=== PATIENT | male | born 1975 | race Caucasian/White ===

== ENCOUNTER 2016-12-18 12:21 | Emergency (ER) | payer OTHER ==
[~2016-12-18] VITALS: Ht 187.9 cm; Wt 74.4 kg
[2016-12-18 12:21] VITALS: BP 134/76
[~2016-12-18 12:21] MED LIST: PENICILLIN VK500 MG PO
[2016-12-18] MEDS ORDERED: CYCLOBENZAPRINE10 MG PO (13:51)
[2016-12-18] MEDS ORDERED: MEDROL DOSEPAK4 MG PO (13:51)
[2016-12-18] MEDS ORDERED: NAPROSYN500 MG PO (13:51)
== END 2016-12-18 14:00 | disposition home or self-care (01) ==
LOC: ED 12:21
DX: M54.30 Sciatica, unspecified side (principal); F17.200 Nicotine dependence, unspecified, uncomplicated

== ENCOUNTER 2020-03-01 19:16 | Emergency (ER) | payer OTHER ==
[~2020-03-01 19:16] MED LIST changes: +CYCLOBENZAPRINE10 MG PO; +MEDROL DOSEPAK4 MG PO; +NAPROSYN500 MG PO
== END 2020-03-01 20:14 | disposition left against medical advice (07) ==
LOC: ED 19:16
DX: R55 Syncope and collapse (principal); Z53.21 Procedure and treatment not carried out due to patient leaving prior to being seen by health care provider

== ENCOUNTER 2021-01-12 11:23 | Emergency (ER) | payer OTHER ==
[~2021-01-12] VITALS: Wt 86.2 kg
[2021-01-12 11:35] VITALS: BP 172/70
== END 2021-01-12 12:37 | disposition home or self-care (01) ==
LOC: ED 11:23
DX: S05.02XA Injury of conjunctiva and corneal abrasion without foreign body, left eye, initial encounter (principal); X58.XXXA Exposure to other specified factors, initial encounter; Y93.89 Activity, other specified; Y92.89 Other specified places as the place of occurrence of the external cause; Y99.8 Other external cause status